=== PATIENT | female | born 1990 | race Caucasian/White ===

== ENCOUNTER 2019-01-27 20:14 | Emergency (ER) | payer MEDICAID ==
[~2019-01-27] VITALS: Ht 154.9 cm; Wt 65.8 kg
--- NOTE | 2019-01-27 21:00 | NUR ---
PT ABLE TO TOLERATE IVF INSERTION 2114 : REPORTS SHAKINESS AFTER ADMINISTRATION OF IV MEDS ORDERED PT REASSURED THAT IT WAS DUE TO THE EFFECTS OF IV MED: EPINEPHRINE BENADRYL IV SHOULD COUNTERACT SIDE EFFECT PT KEPT WARM DRY AND COMFORTABLE SIDERAILS X2 UP, BED AT LOWEST POSITION
[2019-01-27] MEDS ORDERED: EPINEPHRINE 1 MG/1 ML AMP IM ONE (21:15)
[2019-01-27] MEDS ORDERED: diphenhydrAMINE 50 MG/1 ML VIAL IV ONE (21:15)
[2019-01-27] MEDS ORDERED: methylPREDNISolone SOD SUCC 125 MG/2 ML VIAL IV ONE (21:15)
[2019-01-27] MEDS ORDERED: FAMOTIDINE 20 MG TABLET PO ONE (21:15)
[2019-01-27] MEDS ORDERED: EPINEPHRINE 1:10,000 1 MG/10 ML DISP.SYRIN ONE (21:25)
[2019-01-27] MEDS ORDERED: FAMOTIDINE 20 MG TABLET ONE (21:25)
[2019-01-27] MEDS ORDERED: methylPREDNISolone SOD SUCC 125 MG/2 ML VIAL ONE (21:25)
--- NOTE | 2019-01-27 21:30 | NUR ---
PT STATES SHE IS FEELING BETTER NOW. MONITORED ACCORDINGLY
--- NOTE | 2019-01-27 21:30 | NUR ---
ERMD AT BEDSIDE FOR UPDATE
[2019-01-27] MEDS ORDERED: diphenhydrAMINE 50 MG/1 ML VIAL ONE (21:46)
[2019-01-27] MEDS ORDERED: ALBUTEROL SULFATE 2.5 MG/3 ML NEBU NEB ONE (22:30)
[2019-01-27] MEDS ORDERED: ALBUTEROL SULFATE 2.5 MG/3 ML NEBU ONE (22:44)
--- NOTE | 2019-01-27 23:22 | NUR ---
Patient discharged to home in stable conditon. Written and verbal after care instructions given. Patient verbalizes understanding of instructions. PT AMBULATORY W/ STABLE GAIT ALL BELONGINGS W/ PT
[2019-01-28 03:27] VITALS: BP 130/73
== END 2019-01-27 23:22 | disposition home or self-care (01) ==
LOC: ER 20:17
DX: T78.40XA Allergy, unspecified, initial encounter (principal); R42 Dizziness and giddiness; F32.9 Major depressive disorder, single episode, unspecified; Z88.1 Allergy status to other antibiotic agents
CPT/HCPCS: 94640; 96372; 96374; 96375; 99283; J0171; J1200; J2930; A4663